=== PATIENT | female | born 1930 | race Asian ===

== ENCOUNTER 2019-04-17 09:51 | Emergency (ER) | payer MEDICARE, OTHER ==
[~2019-04-17] VITALS: Ht 152.4 cm; Wt 60.0 kg
[2019-04-17 09:53] VITALS: Ht 152.4 cm; Wt 60.0 kg
[2019-04-17] MEDS ORDERED: ONDANSETRON 4 MG INJ IV STA (10:54)
[2019-04-17] MEDS ORDERED: SOD CHLORIDE 0.9% 500 ML IV ONE (11:00)
[2019-04-17] MEDS ORDERED: CLOP75TA27 PO (12:48)
[2019-04-17] MEDS ORDERED: LIDO700A29 TP (12:48)
[2019-04-17] MEDS ORDERED: SITA50TA2 PO (12:49)
[2019-04-17] MEDS ORDERED: EXEL46P TD (12:49)
[2019-04-17] MEDS ORDERED: OLME40TA13 PO (12:49)
[2019-04-17] MEDS ORDERED: DEXL60CA2 PO (12:50)
[2019-04-17] MEDS ORDERED: NIFE30TA23 PO (12:50)
[2019-04-17] MEDS ORDERED: MECLIZINE 12.5 MG TAB PO ONE (14:00)
--- NOTE | 2019-04-17 14:27 | ERD ---
ER Documentation Chief Complaint Chief Complaint Dizziness, nausea, vomiting, headache HPI This is an 88-year-old female with a past medical history of hypertension, hyperlipidemia, diabetes, coronary artery disease on Plavix who is presenting with waxing and waning episodes of dizziness with a sensation that the room is spinning, nausea, 1-2 episodes of nonbilious nonbloody vomiting and a mild frontal headache. She reports a mild throbbing headache with no photophobia or phonophobia. Her dizziness is worse with movement of her head. She does not endorse any focal deficits. She does not endorse blurry or double vision. Her coordination is normal. She does not endorse any weakness or numbness or tingling to the face or extremities. She does feel imbalanced when walking. She does not endorse any alleviating or exacerbating factors. The patient denies feeling sick recently. The patient denies fever or chills. The patient does not endorse neck or back pain. The patient denies lightheadedness. The patient has had no chest pain or trouble breathing. The patient denies abdominal pain. The patient denies changes to bowel movements or urination. The patient has had no focal deficits. The patient has had no we akness or numbness or tingling to the face or extremities. ROS All systems reviewed and are negative except as per history of present illness. Medications Home Meds Reported Medications Nifedipine* (Nifedipine ER*) 30 Mg Tablet.sa, 30 MG PO DAILY, TAB.SA 04/17/19 Dexlansoprazole (Dexilant) 60 Mg Bari., 60 MG PO DAILY, #30 CAP 04/17/19 Rivastigmine* Patch (Exelon* Patch) 4.6 Mg/24 Hr Patch.td24, 1 PATCH TD DAILY, PATCH 04/17/19 Sitagliptin* (Januvia*) 50 Mg Tablet, 50 MG PO DAILY, #30 TAB 04/17/19 Olmesartan Medoxomil (Benicar) 40 Mg Tablet, 40 MG PO DAILY, #30 TAB 04/17/19 Lidocaine (Lidoderm) 1 Each Adh..patch, 1 EACH TP Q12 04/17/19 Clopidogrel Bisulfate (Clopidogrel) 75 Mg Tablet, 75 MG PO DAILY, #30 TAB 04/17/19 Allergies Allergies: Coded Allergies: Penicillins (Verified Allergy, Unknown, 04/17/19) PMhx/Soc History of Surgery: Yes (Possible history of catheterization) Anesthesia Reaction: No Hx Neurological Disorder: Yes (Questionable history of a meningioma) Hx Respiratory Disorders: No Hx Cardiac Disorders: Yes (Hypertension, hyperlipidemia, diabetes, coronary artery disease on Plavix) Hx Psychiatric Problems: No Hx Miscellaneous Medical Probl: No Hx Alcohol Use: No Hx Substance Use: No Hx Tobacco Use: No Smoking Status: Never smoker FmHx Family History: diabetes Physical Exam Vitals Vital Signs Date Temp Pulse Resp B/P (MAP) Pulse Ox O2 O2 Flow FiO2 Time Delivery Rate 04/17/19 97.8 77 15 157/67 98 Room Air 12:56 (97) 04/17/19 97.8 67 15 125/69 99 Room Air 11:24 (87) 04/17/19 97.8 66 24 108/56 96 09:53 (73) Physical Exam Const: No apparent distress, well-developed, well-nourished Head: Normocephalic, Atraumatic Eyes: Normal Conjunctiva. Right horizontal nystagmus. No vertical nystagmus. Abnormal head impulse test. No skew deviation. Extraocular movements otherwise intact. Pupils equal, round and reactive to light ENT: Normal External Ears, Nose and Mouth. Neck: Full range of motion. No meningismus. Resp: Clear to auscultation bilaterally, No wheezes, rales or rhonchi Cardio: Regular rate and rhythm. No murmurs, rubs or gallops Abd: Soft, non tender, non distended. Normal bowel sounds Skin: No petechiae or rashes Back: No midline tenderness. No CVA tenderness Ext: No cyanosis, or edema Neur: Awake and alert, oriented 4. Cranial nerves intact. No facial droop. Normal strength, sensation and coordination. Psych: Normal Mood and Affect Result Diagram: 04/17/19 1047 04/17/19 1047 Results 24 hrs Laboratory Tests Test 04/17/19 10:47 04/17/19 12:52 White Blood Count 5.1 10^3/ul Red Blood Count 3.67 10^6/ul Hemoglobin 11.1 g/dl Hematocrit 34.4 % Mean Corpuscular Volume 93.7 fl Mean Corpuscular Hemoglobin 30.2 pg Mean Corpuscular Hemoglobin Concent 32.3 g/dl Red Cell Distribution Width 13.2 % Platelet Count 207 10^3/UL Mean Platelet Volume 9.0 fl Immature Granulocytes % 0.200 % Neutrophils % 76.2 % Lymphocytes % 18.5 % Monocytes % 4.1 % Eosinophils % 0.8 % Basophils % 0.2 % Nucleated Red Blood Cells % 0.0 /100WBC Immature Granulocytes # 0.010 10^3/ul Neutrophils # 3.9 10^3/ul Lymphocytes # 0.9 10^3/ul Monocytes # 0.2 10^3/ul Eosinophils # 0.0 10^3/ul Basophils # 0.0 10^3/ul Nucleated Red Blood Cells # 0.0 10^3/ul Sodium Level 140 mmol/L Potassium Level 4.4 mmol/L Chloride Level 107 mmol/L Carbon Dioxide Level 26 mmol/L Anion Gap 7 Blood Urea Nitrogen 26 mg/dl Creatinine 0.97 mg/dl Est Glomerular Filtrat Rate mL/min mL/min Glucose Level 123 mg/dl Calcium Level 9.2 mg/dl Bedside Urine pH (LAB) 7.0 Bedside Urine Protein (LAB) Negative Bedside Urine Glucose (UA) Negative Bedside Urine Ketones (LAB) Negative Bedside Urine Blood Trace-lysed Bedside Urine Nitrite (LAB) Negative Bedside Urine Leukocyte Esterase (L Negative Current Medications Medications Dose Sig/Chai Start Time Status Last (Trade) Ordered Route PRN Stop Time Admin Dose Reason Admin Sodium 500 ml @ Q1H ONCE 04/17/19 DC 04/17/19 Chloride 500 mls/hr IV 11:00 11:01 04/17/19 11:59 Ondansetron 4 mg ONCE STAT 04/17/19 DC 04/17/19 HCl (Zofran IV 10:54 11:01 Inj) 04/17/19 10:55 Meclizine 25 mg ONCE ONCE 04/17/19 DC HCl PO 14:00 (Antivert) 04/17/19 14:01 Procedures/MDM MDM The patient's presentation warrants further investigation. Previous medical records, if available, were reviewed. LABS The patient's laboratory testing was obtained and reviewed. No emergent treat ment was required unless described below. CBC: Normocytic anemia, not emergent. No E/o systemic infection or thrombocytopenia Chemistry: Elevated BUN with a BUN: Creatinine ratio greater than 20: 1, concerning for possible dehydration. No E/o severe acidosis or alkalosis or renal failure or diabetic ketoacidosis Urine: No E/o acute infection or hematuria EKG EKG read by me: Rate/Rhythm: Regular rate and rhythm at a rate of 64 bpm Intervals: Normal [place]: Normal Impression: Nonspecific repolarization changes without evidence of acute ischemia or arrhythmia IMAGING Imaging and Radiology interpretation reviewed. CT head FINDINGS: There is no intracranial hemorrhage, mass effect, or midline shift. the ventricles and sulci are minimally prominent although normal for age. There is minimal hypoattenuation in the periventricular white matter. There is good [place]-white matter differentiation throughout the cerebral hemispheres. The visualized brainstem and cerebellum are unremarkable. No extra-axial fluid collection is seen. The visualized paranasal sinuses demonstrate opacification of the right anterior ethmoid air cells and frontal sinuses. IMPRESSION: No evidence of acute intracranial pathology. There is minimal generalized volume loss with microvascular changes. Right frontal and anterior ethmoid mucosal thickening. Electronically viewed and signed by Physician Jf on 04/17/2019 13:08 TREATMENT/DISPOSITION The patient presents for dizziness. I do have high suspicion for peripheral vertigo as the etiology of symptoms. The patient's hints exam is reassuring. I have decreased suspicion for a central etiology at this time. The patient has no focal deficits. Her neurologic exam is reassuring. I have decreased suspicion for cerebral ischemia. There was no trauma or injury. There is no personal or family history of cerebral aneurysm. I have decreased suspicion for SAH or other ICH. I have low suspicion for temporal arteritis, cavernous venous thrombosis, subdural hematoma, epidural hematoma, meningitis. The patient is not clinically orthostatic. The patient has no signs of emergent or symptomatic anemia. The patient does not have any emergent electrolyte or metabolic emergencies. I have decrease suspicion for a thyroid disorder. The patient is not toxic appearing. I have decreased suspicion for an infectious etiology of symptoms. The patient's EKG is reassuring. I have low suspicion for acute coronary syndrome. I do not see evidence of any emergent cardiac arrhythmia, which includes but is not limited to heart block, Brugada syndrome or WPW. The patient has no heart murmurs or rales. I have low suspicion for hypertrophic cardio myopathy. I do not see evidence of CHF. The patient does not endorse any chest or pleuritic pain. The history is negative for bleeding or clotting disorders. The patient has not been involved in any recent prolonged trips or surgeries or hospitalizations. The patient has no calf tenderness or swelling. I have decreased suspicion for PE as the etiology of symptoms. The patient has no focal deficits. The neurologic exam is reassuring. The patient was treated with IV fluids and Zofran in the emergency department with some improvement of her symptoms. However, she continued to endorse dizziness. The patient was given a dose of meclizine in the emergency department. DISCHARGE (anticipated) The patient's disposition is pending medication effectiveness of meclizine. The patient was signed out to Dr. Ward at 2 PM on April 17, 2019. No emergent diagnoses were identified. At this time, I anticipate that the patient will be a good candidate for discharge. The patient will need to follo w-up with a primary care physician in 1-3 days. The patient will be given strict precautions with which to return to the emergency department. Prescriptions: Meclizine The patient's blood pressure was elevated at greater than 120/80 while in the emergency department. The patient was otherwise stable with no evidence of hypertensive urgency or emergency. The patient does not require admission for blood pressure control. I have discussed with the patient the risks of hypertension. I have instructed the patient to return to the ER for any new or worsening symptoms including chest pain, shortness of breath, headache, blurred vision, confusion, nausea, vomiting or LOC. I have advised the patient to follow up with the primary care physician for outpatient monitoring and treatment for hypertension in 1-3 days. Disclaimer: Inadvertent spelling and grammatical errors are likely due to EHR/d ictation software use and do not reflect on the overall quality of patient care. Note that the electronic time recorded on this note does not necessarily reflect the actual time of the patient encounter. Departure Diagnosis: Primary Impression: Dizziness Additional Impressions: Headache Headache type: unspecified Headache chronicity pattern: unspecified pattern Intractability: not intractable Qualified Codes: R51 - Headache Dehydration Nausea Condition: Stable (Anticipated) Patient Instructions: Dizziness, Unk Cause, Self-Care for Headaches, Possible Causes of Dizziness or Fainting SHAINA NEW MD Apr 17, 2019 14:18
[2019-04-17] MEDS ORDERED: MECL12.574 PO ×2 (14:28→16:14)
[2019-04-17 15:30] VITALS: BP 148/80; PULSE 76; RESP 20
[2019-04-17] MEDS ORDERED: ASPIRIN 325 MG TAB PO ONE (15:30)
== END 2019-04-17 16:07 | disposition home or self-care (01) ==
LOC: E/R 09:51
DX: R42 Dizziness and giddiness (principal); R51 Headache; E86.0 Dehydration; R11.0 Nausea; I10 Essential (primary) hypertension; E11.9 Type 2 diabetes mellitus without complications; I25.10 Atherosclerotic heart disease of native coronary artery without angina pectoris; Z79.02 Long term (current) use of antithrombotics/antiplatelets; Z79.84 Long term (current) use of oral hypoglycemic drugs
CPT/HCPCS: 36415; 70450; 80048; 81003; 85025; 93005; 96361; 96374; 99285; J2405; J7040